=== PATIENT | female | born 1990 | race Two or more races ===

== ENCOUNTER 2017-04-09 09:34 | Emergency (ER) | payer OTHER ==
[2017-04-09 09:40] VITALS: BP 150/100
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
[2017-04-09] MEDS ORDERED: AZITHROMYCIN 250 MG TABLET PO ONE (10:28)
[2017-04-09] MEDS ORDERED: CEFTRIAXONE INJ 250 MG VIAL IM ONE (10:28)
[2017-04-09] MEDS ORDERED: ONDANSETRON 4 MG TAB.RAPDIS PO ONE (10:28)
[2017-04-09] MEDS ORDERED: LEVONORGESTREL 1.5 MG TABLET (1 TAB/ER-USE) PO ONE (10:33)
[2017-04-09] MEDS ORDERED: LIDOCAINE 1% INJ-PF (10 MG/ML) 30 ML SDV INFIL ONE (10:39)
[2017-04-09 10:51] LABS: APPEARANCE,URINE SLIGHTLY-CLOUDY; BILIRUBIN,URINE NEGATIVE (NEGATIVE); GLUCOSE, URINE NEGATIVE (NEGATIVE); KETONES,URINE NEGATIVE (NEGATIVE); LEUKOCYTE ESTERASE,URINE NEGATIVE (NEGATIVE); NITRITE,URINE NEGATIVE (NEGATIVE); PROTEIN,URINE NEGATIVE (NEGATIVE); URINE SPECIFIC GRAVITY 1.023; UROBILINOGEN,URINE NEGATIVE mg/dL (<2.0)
[2017-04-09 12:18] LABS: CHLAM PCR NOT DETECTED (NOT DETECT)
== END 2017-04-09 11:02 | disposition home or self-care (01) ==
LOC: ER 09:34
DX: T76.21XA Adult sexual abuse, suspected, initial encounter (principal); R42 Dizziness and giddiness
CPT/HCPCS: 99284; 96372; 87086; 87210; 81025; 81001; 87491; 87591; A9270; S0119; J3490; J0696

== ENCOUNTER 2017-07-22 20:02 | Emergency (ER) | payer OTHER ==
--- NOTE | 2017-07-22 20:34 | ER Document Report ---
ED Medical Screen (RME) - General Chief Complaint: Post Surgical Pain Stated Complaint: DRAINAGE TUBE PROBLEM Time Seen by Provider: 07/22/17 20:27 Notes: 27-year-old female with wound concerns postop, she had a thyroidectomy on the at [facility], yesterday she had the area drained and packed by nasal ENT, she states the packing fell out so she went into [facility] ED and they put a "to be in", she states she thinks the tube came out and she is concerned. She denies fever, difficulty swallowing, difficulty breathing. TRAVEL OUTSIDE OF THE [place] IN LAST 30 DAYS: No - Related Data Allergies/Adverse Reactions: No Known Allergies Allergy (Verified 07/22/17 20:07) Past Medical History Renal/ Medical History: Denies: Hx Peritoneal Dialysis Past Surgical History: Reports: Hx Cholecystectomy - Immunizations Hx Diphtheria, Pertussis, Tetanus Vaccination: Yes - 2008 Physical Exam - Vital signs Vitals: Temp Pulse Resp BP Pulse Ox 98.6 F 66 18 116/66 98 07/22/17 20:08 07/22/17 20:08 07/22/17 20:08 07/22/17 20:08 07/22/17 20:08 - HEENT Pharynx: Normal Neck: Other - Postsurgical wound in the neck with nearby taped Alyssa drain which is not in the wound, no current drainage, small amount of serous/ yellowish straining on the dressing Course - Re-evaluation Re-evalutation: Appears to have a [place] drain which was not secured and already came out. - Vital Signs Vital signs: Temp Pulse Resp BP Pulse Ox 98.6 F 66 18 116/66 98 07/22/17 20:08 07/22/17 20:08 07/22/17 20:08 07/22/17 20:08 07/22/17 20:08
--- NOTE | 2017-07-22 21:08 | ER Document Report ---
ED General - General Chief Complaint: Post Surgical Pain Stated Complaint: DRAINAGE TUBE PROBLEM Time Seen by Provider: 07/22/17 20:27 Mode of Arrival: Ambulatory Information source: Patient Notes: 27 year-old female had thyroidectomy performed at [facility] 10 days ago who was then seen by ENT and had packing placed which fell out this morning and was then seen at [facility] where a Alyssa drain was placed which has since fallen out presents with complaints of drainage from her neck. Patient denies any fevers or chills denies any difficulty breathing. Patient was started on Augmentin yesterday TRAVEL OUTSIDE OF THE [place] IN LAST 30 DAYS: No - HPI Onset: Just prior to arrival Onset/Duration: Sudden Quality of pain: No pain Severity: Mild Pain Level: Denies Associated symptoms: Other Exacerbated by: Denies Relieved by: Denies Similar symptoms previously: Yes Recently seen / treated by doctor: Yes - Related Data Allergies/Adverse Reactions: No Known Allergies Allergy (Verified 07/22/17 20:07) Past Medical History - Social History Smoking Status: Never Smoker Cigarette use (# per day): No Chew tobacco use (# tins/day): No Smoking Education Provided: No Family History: Reviewed & Not Pertinent Patient has suicidal ideation: No Patient has homicidal ideation: No Renal/ Medical History: Denies: Hx Peritoneal Dialysis Past Surgical History: Reports: Hx Cholecystectomy - Immunizations Hx Diphtheria, Pertussis, Tetanus Vaccination: Yes - 2008 Review of Systems - Review of Systems Notes: REVIEW OF SYSTEMS: CONSTITUTIONAL : Denies fever, chills, or sweats. Denies recent illness. EENT: Drainage from neck CARDIOVASCULAR: Denies chest pain. Denies palpitations or racing or irregular heart beat. Denies ankle edema. RESPIRATORY: Denies cough, cold, or chest congestion. Denies shortness of breath, difficulty breathing, or wheezing. GASTROINTESTINAL: Denies abdominal pain or distention. Denies nausea, vomiting , or diarrhea. Denies blood in vomitus, stools, or per rectum. Denies black, tarry stools. Denies constipation. GENITOURINARY: Denies difficulty urinating, painful urination, burning, frequency, blood in urine, or discharge. FEMALE GENITOURINARY: Denies vaginal bleeding, heavy or abnormal periods, irregular periods. Denies vaginal discharge or odor. MUSCULOSKELETAL: Denies back or neck pain or stiffness. Denies joint pain or swelling. SKIN: Denies rash, lesions or sores. HEMATOLOGIC : Denies easy bruising or bleeding. LYMPHATIC: Denies swollen, enlarged glands. NEUROLOGICAL: Denies confusion or altered mental status. Denies passing out or loss of consciousness. Denies dizziness or lightheadedness. Denies headache. Denies weakness or paralysis or loss of use of either side. Denies problems with gait or speech. Denies sensory loss, numbness, or tingling. Denies seizures. PSYCHIATRIC: Denies anxiety or stress. Denies depression, suicidal ideation, or homicidal ideation. ALL OTHER SYSTEMS REVIEWED AND NEGATIVE. PHYSICAL EXAMINATION: GENERAL: Well-appearing, well-nourished and in no acute distress. HEAD: Atraumatic, normocephalic. EYES: Pupils equal round and reactive to light, extraocular movements intact, conjunctiva are normal. ENT: Opening noted measuring 2 cm in length with yellowish drainage no tender no cellulitic component NECK: Normal range of motion, supple without lymphadenopathy LUNGS: Breath sounds clear to auscultation bilaterally and equal. No wheezes rales or rhonchi. HEART: Regular rate and rhythm without murmurs ABDOMEN: Soft, nontender, nondistended abdomen. No guarding, no rebound. No masses appreciated. Female : deferred Musculoskeletal: Normal range of motion, no pitting or edema. No cyanosis. NEUROLOGICAL: Cranial nerves grossly intact. Normal speech, normal gait. Normal sensory, motor exams PSYCH: Normal mood, normal affect. SKIN: Warm, Dry, normal turgor, no rashes or lesions noted. Dictation was performed using [employer] voice recognition software Physical Exam - Vital signs Vitals: Temp Pulse Resp BP Pulse Ox 98.6 F 66 18 116/66 98 07/22/17 20:08 07/22/17 20:08 07/22/17 20:08 07/22/17 20:08 07/22/17 20:08 Course - Re-evaluation Re-evalutation: 07/22/17 21:09 dr Romero paged 07/22/17 23:03 Dr. Romero evaluated the area cleaned it out extensively and dressing was placed. Patient is instructed to follow-up with surgeon otherwise encouraged to continue antibiotic use return immediately if there is any fevers or any other concerns After performing a Medical Screening Examination, I estimate there is LOW risk for CENTRAL CORD SYNDROME, EPIDURAL MASS LESION, SEVERE SPINAL STENOSIS, ARTERIAL DISSECTION, MENINGITIS, or ACUTE CORONARY SYNDROME, thus I consider the discharge disposition reasonable. I have reevaluated this patient multiple times and no significant life threatening changes are noted. The patient and I have discussed the diagnosis and risks, and we agree with discharging home to follow-up on an outpatient basis with the understanding that symptoms and presentations can change. We also discussed returning to the Emergency Department immediately if new or worsening symptoms occur. We have discussed the symptoms which are most concerning (e.g., saddle anesthesia, urinary or bowel incontinence or retention, changing or worsening pain) that necessitate immediate return. - Vital Signs Vital signs: Temp Pulse Resp BP Pulse Ox 98 F 60 18 117/72 98 07/22/17 21:55 07/22/17 21:55 07/22/17 21:55 07/22/17 21:55 07/22/17 21:55 Discharge - Discharge Clinical Impression: Status post thyroidectomy Draining postoperative wound Qualifiers: Encounter type: initial encounter Qualified Code(s): T81.89XA - Other complications of procedures, not elsewhere classified, initial encounter Condition: Stable Disposition: HOME, SELF-CARE Additional Instructions: Please follow-up with your surgeon for reevaluation or return immediately if there is any fevers or any other concerns including difficulty breathing or swallowing
[2017-07-22 21:58] VITALS: BP 117/72
--- NOTE | 2017-07-23 04:47 | CONSULTATION REPORT E ---
Consultation Report NAME: ANA ANDREWS : 1990 AGE: 27Y DATE: 07/22/2017 TO: SAMANTHA MARAVILLA M.D. FROM: LAKISHA OTERO Requesting Physician REASON FOR CONSULT: Neck infection. SUMMARY OF CONSULTATION: The patient is a 27-year-old female, who underwent right thyroid lobectomy by her verbal report at [facility] approximately 10 days ago. This was for benign 3 cm nodule, again by her report. She did well, discharged home. Over the last few days, she developed increased neck swelling. She was seen at the [facility], yesterday where she underwent opening of the wound, decompression of a purulent and superficial wound infection by her report and had a [place] drain placed. Alyssa drain popped out today. She is seen in our emergency department for further evaluation and care. The patient states she has been feeling better since the procedure was done yesterday. She was started on Augmentin and has been taking the pills by mouth. Past medical/surgical history, review of systems, social history, family history deferred to the History and Physical document. PHYSICAL EXAMINATION: GENERAL: The patient is examined by me in room 18 of the emergency department. She is in no acute distress. She is awake, alert and oriented x4. NECK: The neck is examined. There is a recent operative scar with some Steri-Strips, which are removed. There is a small hole to the right of midline in the incision, which opens up into a subcutaneous cavity. This was explored with a Q-Tip and peroxide and a minimal amount of seropurulent discharged is evacuated. There is no surrounding erythema, fluctuance, etc. The patient's voice appears to be intact and with good tone and no evidence of straining. LUNGS: Clear to auscultation bilaterally. HEART: Without murmur. The remaining of the examination is unremarkable. IMPRESSION: SUPERFICIAL WOUND INFECTION STATUS POST PARTIAL THYROIDECTOMY, NOW DRAINED WITH CLINICAL IMPROVEMENT. RECOMMENDATIONS: 1. Minimize neck manipulation by refraining from more packing and drains. I think the neck is sufficiently drained at that this point. 2. I have suggested daily soap and water washes, and cover the area with a dry gauze. 3. Continue p.o. antibiotics. 4. Follow up with general surgeon who performed the procedure for continued postoperative care. DICTATING PHYSICIAN: SAMANTHA MARAVILLA M.D. [id number] PHY#: [id number] ID: [id number] JOB#: [id number] ACCT: [id number] cc:SAMANTHA MARAVILLA M.D. >
== END 2017-07-22 21:55 | disposition home or self-care (01) ==
LOC: ER 20:02
DX: T81.89XA Other complications of procedures, not elsewhere classified, initial encounter (principal); G89.18 Other acute postprocedural pain; Z98.890 Other specified postprocedural states
CPT/HCPCS: 99284